=== PATIENT | male | born 1990 | race Caucasian/White ===

== ENCOUNTER 2016-06-17 20:14 | Emergency (ER) | payer OTHER ==
[2016-06-17 21:12] LABS: AMPHETAMINES LEVEL URINE NEGATIVE (NEGATIVE); BENZODIAZEPINES URINE NEGATIVE (NEGATIVE); COCAINE METABOLITE URINE NEGATIVE (NEGATIVE); CONTROL LINE INT CTR LINE PRESENT; METHADONE URINE NEGATIVE (NEGATIVE); OPIATES URINE NEGATIVE (NEGATIVE); TRICYCLIC ANTIDEPRESS URINE NEGATIVE (NEGATIVE)
[2016-06-17 21:31] LABS: ALBUMIN 4.7 GM/DL (3.2-5.2); ALBUMIN/GLOBULIN RATIO 1.47 (1.00-1.93); ALKALINE PHOSPHATASE 106 U/L (45-117); ALT/SGPT 41 U/L (12-78); ANION GAP 10 MEQ/L (8-16); AST/SGOT 23 U/L (15-37); BILIRUBIN,DIRECT 0.3 MG/DL (0.0-0.2); BILIRUBIN,TOTAL 2.8 MG/DL (0.2-1.0); BLOOD UREA NITROGEN 13 MG/DL (7-18); CALCIUM LEVEL 9.1 MG/DL (8.5-10.1); CARBON DIOXIDE LEVEL 26 MEQ/L (21-32); CHLORIDE LEVEL 106 MEQ/L (98-107); CREATININE FOR GFR 0.93 MG/DL (0.70-1.30); GLOMERULAR FILTRATION RATE > 60.0 (>60); GLUCOSE, FASTING 92 MG/DL (70-105); POTASSIUM SERUM 3.8 MEQ/L (3.5-5.1); SODIUM LEVEL 142 MEQ/L (136-145); TOTAL PROTEIN 7.9 GM/DL (6.4-8.2)
[2016-06-17 22:12] LABS: MEAN CORPUSCULAR VOLUME 86.7 fl (80.0-96.0); WHITE BLOOD COUNT 9.1 K/mm3 (4.0-10.0)
[2016-06-17 22:13] LABS: MEAN CORPUSCULAR HEMOGLOBIN 31.3 pg (27.0-33.0); MEAN CORPUSCULAR HGB CONC 36.2 g/dl (32.0-36.5); RED CELL DISTRIBUTION WIDTH 12.6 % (11.5-14.5)
--- NOTE | 2016-06-18 08:39 | EDDOCDS ---
Nurse's Notes [facility] Name: Og Lester Age: 25 yrs Sex: Male : 1990 Arrival Date: 06/17/2016 Time: 20:14 Bed OBSERVATION Private MD: Other - Complete Info On Cds Diagnosis: Major depressive disorder, single episode, unspecified;Suicidal ideations Presentation: 06/17 20:25 Presenting complaint: Patient states: Pt states he has been having marital issues that lf1 have lead to thoughts of hurting himself. When asked if he has a specific plan pt. states "there are a few". Pt. states he was going to use a 10 blade scalpel to his radial artery after numbing with lidocaine, hanging with rope, or using helium or carbon monoxide but decided against that because his car has a converter. Pt states his called someone on post and convinced him to get help. Pt reports that someone from his chain of command brought him in but they did not stay with him. Ssgt. Andrew brought him in. Mental Health Triage Level: Level 2: The patient displays active suicidal ideations. Adult Sepsis Screening:. Mental Health Triage Level: Level 2: The patient displays active suicidal ideations. Suicide/Homicide risk assessment- The patient admits to and/or has been reported to be having suicidal ideations. The patient reports that he/she has a prior history of suicide attempt and/or organized plan. The patient reports that he/she has experienced a significant life altering event in the last 30 days. Status: The patient is an active duty business and services instructor. Transition of care: patient was not received from another setting of care. Red Flag criteria, patient assessed and taken directly to a bed. 20:25 Acuity: ARIN Level 3 lf1 20:25 Method Of Arrival: Walkin/Carried/Asstd lf1 06/18 05:06 Adult Sepsis Screening: The patient does not have new or worsening altered mentation. ko2 Patient's respiratory rate is less than 22. Systolic blood pressure is greater than 100. Patient has a qSOFA score of 0- Negative Sepsis Screen. Triage Assessment: 06/17 20:32 General: Appears in no apparent distress, Behavior is flat. Pain: Denies pain. HIV lf1 screening NA for this visit. Neurological: Level of Consciousness is awake, alert. EENT: No deficits noted. Cardiovascular: Chest pain is denied. Respiratory: Respiratory effort is even, unlabored. GI: Denies nausea, vomiting. Derm: No deficits noted. Injury Description: No known injury. Historical: - Allergies: No known drug Allergies; - Home Meds: 1. none - PMHx: none; - PSHx: Appendectomy; Tonsillectomy; - Social history: Smoking status: Patient states was never smoker of tobacco. No barriers to communication noted, The patient speaks fluent Greek, Speaks appropriately for age, Preferred Language: Greek. - Family history: Not pertinent. - : The pt / caregiver states he / she is not on anticoagulants. Home medication list is obtained from the patient. - Exposure Risk Screening:: None identified. Screenin:46 Fall risk: No risks identified. Assistance ADL's: requires no assistance with mf4 activities of daily living. Nutritional screening: No deficits noted. 06/18 05:06 Screening information is obtained from the patient. Abuse/DV Screen: The patient / ko2 caregiver reports he/she is: not in a situation that causes fear, pain or injury. Advance Directives: Currently, there is no health care proxy. There is no active DNR order. There is no living will. There is no Power of Wet Roaster. home support is adequate. Assessment: 06/17 21:46 General: Appears in no apparent distress, comfortable, Behavior is appropriate for age, mf4 cooperative, pt resting on stretcher eyes closed, resp easy . Respiratory: No deficits noted. Airway is patent Respiratory effort is even, unlabored. 23:28 General: Appears in no apparent distress, comfortable, to be sleeping. Behavior is mf4 appropriate for age, cooperative. Respiratory: Airway is patent Respiratory effort is even, unlabored. 06/18 00:30 General: Appears in no apparent distress, comfortable, to be sleeping. Behavior is mf4 appropriate for age, cooperative. General: pt resting on stretcher no s/s of distress security observing . Respiratory: No deficits noted. Airway is patent Respiratory effort is even, unlabored, Respiratory pattern is regular. 01:30 General: Appears in no apparent distress, comfortable, to be sleeping. mf4 02:55 General: Appears in no apparent distress, comfortable, to be sleeping. Respiratory: No mf4 deficits noted. Airway is patent Respiratory effort is even, unlabored. 03:28 General: Appears in no apparent distress, comfortable, to be sleeping. Respiratory: No mf4 deficits noted. Airway Respiratory effort is even, unlabored. 04:35 General: Appears in no apparent distress, comfortable, to be sleeping. Respiratory: mf4 Airway is patent Respiratory effort is even, unlabored. 05:32 General: Appears in no apparent distress, comfortable, Behavior is appropriate for age, mf4 cooperative. Respiratory: No deficits noted. Airway is patent Respiratory effort is even, unlabored. 07:48 General: Appears in no apparent distress, comfortable, Behavior is appropriate for age, hs1 Pt pleasant this morning. No needs noted. Patient tolerated breakfast well and states that he does not want any more. . Respiratory: No deficits noted. 08:36 General: Appears in no apparent distress, comfortable, Behavior is appropriate for age, hs1 cooperative. Pain: Denies pain. Neurological: No deficits noted. Cardiovascular: No deficits noted. Respiratory: No deficits noted. GI: No deficits noted. Mental Health Eval: 06/17 21:08 Status: The patient is an active duty business and services instructor. PT was [employer] from [id number]. 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 [facility] Behavioral Health: The patient is not an established patient of [facility] Behavioral Health. Referral Information: Evaluation referral is generated by the patient himself / herself. The patient was referred for evaluation because PT +SI. 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 PT states that around the time he re enlisted he and his because he was trying to figure out why he was so depressed and wanted to rule out that it wasn't his marriage. PT admits to multiple detailed plans in regards to how he would kill himself and says he has been researching for years. PT is a MEDIC and he has a scalpel and a pain killer to numb himself and then he was going to cut an artery to bleed to . He was telling his good by and hinting that he was going to kill himself and she began calling PT's command who intervened and brought PT to the hospital. PT was crying with minimal eye contact and flat affect. He cannot CFS. PT became very emotional when he spoke of his 6 year old son who did not recognizing him as a toddler after he returned from deployment but prior to him leaving they were very close. . Delusions are denied. Patient's mood is depressed, Hallucinations are denied. Mental Health history: depression, self -mutilation, Mental Health Admissions: None. Current Outpatient Mental Health Services: None. Current living environment is The patient currently lives alone. Patient presents to Emergency Department with the following symptoms within the past 2 weeks: erratic appetite depressed mood, feelings of helplessness/hopelessness, marital problem, poor concentration, sleep disturbance - erratic suicidal ideation with plan for cutting. Substance abuse: Pt denies. Mental status exam: Patients appearance is appropriate, Patient's behavior is cooperative, Speech is normal. Affect is flat. Mood is depressed. Hallucinations are denied. Appetite is erratic Memory is good. Energy level is normal. Content of thought is depressive. cannot CFS Thought process is intact. Cognitive level is oriented to person, place, time and situation Patient's insight is good. Judgement is fair. Rapport with interviewer is good. Suicidal Ideation present with a plan to kill self by cutting. Homicidal ideation is denied. Disposition: Medically cleared for disposition by Christiano Nieto DO Psychiatric Consult is performed by phone with Dr Zurdo Martinez MD. [facility] Admission Criteria: The patient is experiencing suicidal ideation. The patient requires continuous observation and/or control to protect self, others or property. The patient's care requires a multi-modal treatment plan under close supervision and coordination due to the complexity and severity of the patient's symptoms. Legal Status: Patient's legal status will be [facility] admission: 937. DSM-V Differential Diagnosis: Major Depressive Disorder recurrent episode (F33.0). Insurance Pre-Certification: Not Required, . Narrative: PT is aware that the [facility] does not have a bed available and that his chart [facility]. 21:39 Narrative: PT's commander is SSG Narvaez [phone]. hortensia 23:14 Narrative: Pt's [facility] contacts, 1SG Damien Rodriguez ([phone]) and Sgt Og saxena ([phone]). [facility] report to be completed with Dr. Obrien ([phone]). Vital Signs: 20:16 BP 151 / 85; Pulse 84; Resp 18 S; Temp 98.7(O); Pulse Ox 96% on R/A; Weight 90.72 kg gr2 (R); Height 5 ft. 11 in. (180.34 cm) (R); Pain 2/10; 06/18 06:09 BP 149 / 66; Pulse 72; Resp 16; Temp 98.4(O); Pulse Ox 96% on R/A; Pain 0/10; slm 08:36 BP 151 / 75; Pulse 91; Resp 18; Temp 97.5(T); Pulse Ox 96% ; Pain 0/10; hs1 02 20:16 Body Mass Index 27.89 (90.72 kg, 180.34 cm) gr2 Vitals: 06/17 20:16 Log In Time: June 17, 2016 at 20:16. RN notified that patient meets Red Flag gr2 criteria. ED Course: 20:15 Patient visited by Zarina Aiken. gr2 20:15 Patient moved to Waiting gr2 20:16 Other - Complete Info On Cds is Private Physician. gr2 20:20 Patient visited by Zarina Aiken. gr2 20:25 Patient moved to [facility] lf1 20:31 Triage Initiated lf1 20:33 Patient visited by Marguerite Motley RN. lf1 20:33 Christiano Nieto DO is Attending Physician. cs11 20:33 Patient visited by Christiano Nieto DO. cs11 20:37 Patient visited by Judie Mazariegos PCA. tmm1 20:44 Patient has correct armband on for positive identification. Placed in gown. Placed in tmm1 psych safe attire. Bed in low position. Side rails up X 1. Security observing. Property removed, inventory done, secured in belongings bag- placed in locked locker. locker #2. Door closed. Noise minimized. Visitors limited. Psych Safety Check: Location: Psych Room. Visual Assessment: Cooperative. 21:00 Patient visited by Judie Mazariegos PCA. tmm1 21:00 Patient moved to OBSERVATION cs11 21:13 Patient visited by Judie Mazariegos PCA. tmm1 21:15 Psych Safety Check: Location: Psych Room. Visual Assessment: Cooperative. tmm1 21:15 [facility] Payment Agreement was scanned into [employer] and attached to record. ks16 21:38 Psych Safety Check: Location: Psych Room. Visual Assessment: Sleeping. tmm1 21:46 The patient / caregiver is instructed regarding the plan of care and ED course. mf4 21:46 No IV's were initiated during this patient's visit. No procedures done that require mf4 assistance. 21:56 Psych Safety Check: Location: Psych Room. Visual Assessment: Sleeping. tmm1 22:25 Psych Safety Check: Location: Psych Room. Visual Assessment: Sleeping. tmm1 22:41 Psych Safety Check: Location: Psych Room. Visual Assessment: Sleeping. tmm1 23:04 Psych Safety Check: Location: Psych Room. Visual Assessment: Sleeping. tmm1 23:19 Psych Safety Check: Location: Psych Room. Visual Assessment: Sleeping. tmm1 23:37 Psych Safety Check: Location: Psych Room. Visual Assessment: Sleeping. tmm1 02/06 00:00 Psych Safety Check: Location: Psych Room. Visual Assessment: Sleeping. tmm1 00:15 Psych Safety Check: Location: Psych Room. Visual Assessment: Sleeping. tmm1 00:30 Psych Safety Check: Location: Psych Room. Visual Assessment: Sleeping. tmm1 00:45 Psych Safety Check: Location: Psych Room. Visual Assessment: Sleeping. tmm1 01:00 Psych Safety Check: Location: Psych Room. Visual Assessment: Sleeping. tmm1 01:15 Psych Safety Check: Location: Psych Room. Visual Assessment: Sleeping. tmm1 01:30 Psych Safety Check: Location: Psych Room. Visual Assessment: Sleeping. tmm1 01:49 Psych Safety Check: Location: Psych Room. Visual Assessment: Sleeping. tmm1 01:59 Psych Safety Check: Location: Psych Room. Visual Assessment: Sleeping. tmm1 02:48 Psych Safety Check: Location: Psych Room. Visual Assessment: Sleeping. tmm1 02:53 Patient visited by Jackelyn Will, Physical Therapy Resident. jlm 03:06 Patient visited by Jackelyn Will, Physical Therapy Resident. jlm 03:28 Patient visited by Jackelyn Will, Physical Therapy Resident. jlm 03:47 Patient visited by Jackelyn Will, Physical Therapy Resident. jlm 04:28 Patient visited by Jackelyn Will Physical Therapy Resident. jlm 05:00 Patient visited by Jackelyn Will Physical Therapy Resident. jlm 05:12 Patient visited by Jackelyn Will Unit Clerk. jlm 05:36 Patient visited by Jackelyn Will Physical Therapy Resident. jlm 05:53 Patient visited by Jackelyn Will Physical Therapy Resident. jlm 06:10 Patient visited by Jackelyn Will Unit Clerk. jlm 06:24 [facility] Legal paperwork was scanned into [employer] and attached to record. hm1 06:26 Patient visited by Jackelyn Will Unit Clerk. jlm 06:44 Patient visited by Jackelyn Will Unit Clerk. jlm 06:54 Patient visited by Jackelyn Will Unit Clerk. jlm 06:54 Psych Safety Check: Location: Psych Room. Visual Assessment: Sleeping. jlm 07:10 Patient visited by Lex Mitchell Security Aide. pjf 07:20 Patient visited by Lex Mitchell Security Aide. pjf 07:29 Patient visited by Lex Mitchell Security Aide. pjf 07:43 Patient visited by Lex Mitchell Security Aide. pjf 07:51 Patient visited by Jared Bhat RN. ml6 08:01 Patient visited by Lex Mitchell Security Aide. pjf 08:21 Patient visited by Lex Mitchell Security Aide. pjf 08:35 Patient visited by Lex Mitchell Security Aide. pjf Attachments: 06/18 06:24 [facility] Legal paperwork hm1 Order Results: Lab Order: Acetaminophen Level; SPEC'M 06/17/16 20:50 Test: ACETAMINOPHEN LEVEL; Value: < 2.0; Range: 10.0-30.0; Abnormal: Below low normal; Units: UG/ML; Status: F Lab Order: Basic Metabolic Profile; SPEC'M 06/17/16 20:50 Test: GLUCOSE, FASTING; Value: 92; Range: 70-105; Units: MG/DL; Status: F Test: BLOOD UREA NITROGEN; Value: 13; Range: 7-18; Units: MG/DL; Status: F Test: CREATININE FOR GFR; Value: 0.93; Range: 0.70-1.30; Units: MG/DL; Status: F Test: GLOMERULAR FILTRATION RATE; Value: > 60.0; Range: >60; Status: F Test: SODIUM LEVEL; Value: 142; Range: 136-145; Units: MEQ/L; Status: F Test: POTASSIUM SERUM; Value: 3.8; Range: 3.5-5.1; Units: MEQ/L; Status: F Test: CHLORIDE LEVEL; Value: 106; Range: 98-107; Units: MEQ/L; Status: F Test: CARBON DIOXIDE LEVEL; Value: 26; Range: 21-32; Units: MEQ/L; Status: F Test: ANION GAP; Value: 10; Range: 8-16; Units: MEQ/L; Status: F Test: CALCIUM LEVEL; Value: 9.1; Range: 8.5-10.1; Units: MG/DL; Status: F Test Note: ; Units are mL/min/1.73 m2 Chronic Kidney Disease Staging per NKF: Stage I & II GFR >=60 Normal to Mildly Decreased Stage III GFR 30-59 Moderately Decreased Stage IV GFR 15-29 Severely Decreased Stage V GFR <15 Very Little GFR Left ESRD GFR <15 on DRYING MACHINE BACK TENDER Lab Order: Complete Blood Count; [facility]' 06/17/16 20:50 Test: WHITE BLOOD COUNT; Value: 9.1; Range: 4.0-10.0; Units: K/mm3; Status: F Test: RED BLOOD COUNT; Value: 4.99; Range: 4.30-6.10; Units: M/mm3; Status: F Test: HEMOGLOBIN; Value: 15.7; Range: 14.0-18.0; Units: g/dl; Status: F Test: HEMATOCRIT; Value: 43.3; Range: 42.0-52.0; Units: %; Status: F Test: MEAN CORPUSCULAR VOLUME; Value: 86.7; Range: 80.0-96.0; Units: fl; Status: F Test: MEAN CORPUSCULAR HEMOGLOBIN; Value: 31.3; Range: 27.0-33.0; Units: pg; Status: F Test: MEAN CORPUSCULAR HGB CONC; Value: 36.2; Range: 32.0-36.5; Units: g/dl; Status: F Test: RED CELL DISTRIBUTION WIDTH; Value: 12.6; Range: 11.5-14.5; Units: %; Status: F Test: PLATELET COUNT, AUTOMATED; Value: 211; Range: 150-450; Units: k/mm3; Status: F Lab Order: Drug Eval Toxicology ED Only; SPEC'M 06/17/16 20:50 Test: AMPHETAMINES LEVEL URINE; Value: NEGATIVE; Range: NEGATIVE; Status: F Test: BARBITURATES URINE; Value: NEGATIVE; Range: NEGATIVE; Status: F Test: BENZODIAZEPINES URINE; Value: NEGATIVE; Range: NEGATIVE; Status: F Test: CANNABINOIDS URINE; Value: NEGATIVE; Range: NEGATIVE; Status: F Test: COCAINE METABOLITE URINE; Value: NEGATIVE; Range: NEGATIVE; Status: F Test: METHADONE URINE; Value: NEGATIVE; Range: NEGATIVE; Status: F Test: OPIATES URINE; Value: NEGATIVE; Range: NEGATIVE; Status: F Test: TRICYCLIC ANTIDEPRESS URINE; Value: NEGATIVE; Range: NEGATIVE; Status: F Test Note: ; ALL PRESUMPTIVE POSITIVE FINDINGS ARE UNCONFIRMED NORMAL VALUES THRESHOLD IN NG/ML AMPHETAMINES 1000 METHAMPHETAMINES 1000 BARBITURATES 300 BENZODIAZEPINES 300 CANNABINOIDS (THC) 50 COCAINE METABOLITE 300 METHADONE 300 OPIATES 300 PHENCYCLIDINE 25 TRICYCLIC ANTIDEPRESSANTS 1000 RESULTS ARE FOR MEDICAL PURPOSES ONLY. ALL URINE SPECIMENS WILL BE SAVED FOR 3 DAYS. IF CONFIRMATION OF A PRESUMPTIVE POSTIVE SCREEN RESULT IS DESIRED, CALL CHEMISTRY ([phone]) AND REQUEST URINE TO BE SENT TO REFERENCE LAB. FOR A LIST OF CLOSELY RELATED COMPOUNDS PLEASE CALL THE LAB. Lab Order: Ethyl Alcohol (ethanol); SPEC'M 06/17/16 20:50 Test: ETHYL ALCOHOL (ETHANOL); Value: < 0.003; Range: 0.000-0.010; Units: %; Status: F Lab Order: Liver Profile; SPEC'M 06/17/16 20:50 Test: AST/SGOT; Value: 23; Range: 15-37; Units: U/L; Status: F Test: ALT/SGPT; Value: 41; Range: 12-78; Units: U/L; Status: F Test: ALKALINE PHOSPHATASE; Value: 106; Range: 45-117; Units: U/L; Status: F Test: BILIRUBIN,TOTAL; Value: 2.8; Range: 0.2-1.0; Abnormal: Above high normal; Units: MG/DL; Status: F Test: BILIRUBIN,DIRECT; Value: 0.3; Range: 0.0-0.2; Abnormal: Above high normal; Units: MG/DL; Status: F Test: TOTAL PROTEIN; Value: 7.9; Range: 6.4-8.2; Units: GM/DL; Status: F Test: ALBUMIN; Value: 4.7; Range: 3.2-5.2; Units: GM/DL; Status: F Test: ALBUMIN/GLOBULIN RATIO; Value: 1.47; Range: 1.00-1.93; Status: F Lab Order: Salicylate Level; SPEC'M 06/17/16 20:50 Test: SALICYLATE LEVEL; Value: < 1.7; Range: 5.0-30.0; Abnormal: Below low normal; Units: MG/DL; Status: F Lab Order: Thyroid Stimulating Hormone; SPEC'M 06/17/16 20:50 Test: THYROID STIMULATING HORMONE; Value: 2.550; Range: 0.358-3.740; Units: uIU/ML; Status: F Outcome: 06/17 22:53 ER care complete, transfer ordered by Provider. cs11 06/18 05:05 Admission hand-off: Report called to [facility] ER to Valorie Raymond RN. ko2 08:35 Discharge Assessment: Patient awake, alert and oriented x 3. No cognitive and/or hs1 functional deficits noted. Patient verbalized understanding of disposition instructions. patient administered narcotics - no. The following High Risk Discharge criteria are identified: None. Transferred to [facility]. by EMS ground [facility] ambulance report to accompanying personnel Trey Leonard EMT, Leland Braun EMT. Condition: stable. No special radiology studies were completed. 08:37 Patient left the ED. hs1 Signatures: Lex Mitchell Security Aide Securpjf Ford, LisaRN RN lf1 Jared Bhat RN RN ml6 Kaylen Ruano, PSA PSA jfb Samantha Orona, PSA PSA hm1 Marcelle Sanchez RN RN hs1 Dru Figueredo,EYEWEAR MANUFACTURING SUPERVISOR EYEWEAR MANUFACTURING SUPERVISOR 4 Gerson, Christiano, DO DO cs11 McLear, Judie, FUNERAL ASSISTANT FUNERAL ASSISTANT tmm1 Zarina Aiken gr2 Shani Bean,GERRY DUBONN Jackelyn Mathews, Physical Therapy Resident Unit Marina Steve,JERRY RN ashu2 Shelia Cristina, Reg Reg ks16 MTDD
--- NOTE | 2016-06-18 08:39 | EDDOCDS ---
Physician Documentation [facility] Name: Og Lester Age: 25 yrs Sex: Male : 1990 Arrival Date: 06/17/2016 Time: 20:14 Bed OBSERVATION Private MD: Other - Complete Info On Cds Disposition: 06/17/16 22:53 Transfer ordered to [facility]. Diagnosis are Major depressive disorder, single episode, unspecified, Suicidal ideations. - Reason for transfer: Higher level of care. - Accepting physician is Dr Phelan. - Condition is Stable. - Problem is an ongoing problem. - Symptoms are unchanged. Historical: - Allergies: No known drug Allergies; - Home Meds: 1. none - PMHx: none; - PSHx: Appendectomy; Tonsillectomy; - Social history: Smoking status: Patient states was never smoker of tobacco. No barriers to communication noted, The patient speaks fluent Burmese, Speaks appropriately for age, Preferred Language: Burmese. - Family history: Not pertinent. - : The pt / caregiver states he / she is not on anticoagulants. Home medication list is obtained from the patient. - Exposure Risk Screening:: None identified. Vital Signs: 06/17 20:16 BP 151 / 85; Pulse 84; Resp 18 S; Temp 98.7(O); Pulse Ox 96% on R/A; Weight 90.72 kg / gr2 200 lbs (R); Height 5 ft. 11 in. (180.34 cm) (R); Pain 2/10; 06/18 06:09 BP 149 / 66; Pulse 72; Resp 16; Temp 98.4(O); Pulse Ox 96% on R/A; Pain 0/10; slm 08:36 BP 151 / 75; Pulse 91; Resp 18; Temp 97.5(T); Pulse Ox 96% ; Pain 0/10; hs1 06/17 20:16 Body Mass Index 27.89 (90.72 kg, 180.34 cm) gr2 MDM: 06/17 20:34 Consult PFS/PSA/Painting Department Supervisor ordered. cs11 20:34 Consult PFS/PSA/Painting Department Supervisor: Patient's case requires discussion with on-call cs11 Psychiatrist ordered. 20:34 PSA/PFS to call Nursing Three Dimensional Map Modeler, to enter patient data on [place] Safe Act if patient cs11 involuntarily admitted or transferred for SI or HI ordered. 20:34 Confirm accurate psychiatric medication list and times of last dosage ordered. cs11 20:34 Detain Pt Until Medically/PFS Cleared ordered. cs11 20:35 Acetaminophen Level Ordered. EDMS 20:35 Basic Metabolic Profile Ordered. EDMS 20:35 Complete Blood Count Ordered. EDMS 20:35 Drug Eval Toxicology ED Only Ordered. EDMS 20:35 Ethyl Alcohol (ethanol) Ordered. EDMS 20:35 Liver Profile Ordered. EDMS 20:35 Salicylate Level Ordered. EDMS 20:35 Thyroid Stimulating Hormone Ordered. EDMS 21:07 Consult PFS/PSA/Painting Department Supervisor complete. jfb 21:08 Consult PFS/PSA/Painting Department Supervisor: Patient's case requires discussion with on-call b Psychiatrist complete. 21:08 PSA/PFS to call Nursing Three Dimensional Map Modeler, to enter patient data on [facility] Safe Act if patient jfb involuntarily admitted or transferred for SI or HI complete. 21:15 Financial registration complete. ks16 21:15 REPLACED BY [facility] Payment Agreement was scanned into [employer] and attached to record. ks16 22:49 Acetaminophen Level Reviewed. cs11 22:49 Liver Profile Reviewed. cs11 22:49 Salicylate Level Reviewed. cs11 22:49 Basic Metabolic Profile Reviewed. cs11 22:49 Complete Blood Count Reviewed. cs11 22:49 Drug Eval Toxicology ED Only Reviewed. cs11 22:49 Ethyl Alcohol (ethanol) Reviewed. cs11 22:49 Thyroid Stimulating Hormone Reviewed. cs11 06 05:03 REGULAR DIET PLASTIC BACA+DIET ordered. EDMS 06:24 [facility] Legal paperwork was scanned into [employer] and attached to record. hm1 Signatures: Dispatcher [employer] EDMS Marguerite Motley,RN RN lf1 Kaylen Ruano, PSA PSA jfb Samantha Orona, PSA PSA hm1 Marcelle Sanchez RN RN hs1 Christiano Nieto, DO cs11 Marina Bergman RN RN ko2 Shelia Cristina, Reg Reg ks16 The chart was reviewed and I authenticate all verbal orders and agree with the evaluation and treatment provided.Attachments: 06/17 21:15 REPLACED BY [facility] Payment Agreement ks16 MTDD
--- NOTE | 2016-06-20 09:38 | EDDOCDS ---
Physician Documentation [facility] Name: Og Lester Age: 25 yrs Sex: Male : 1990 Arrival Date: 06/17/2016 Time: 20:14 Bed OBSERVATION Private MD: Other - Complete Info On Cds Disposition: 06/17/16 22:53 Transfer ordered to [facility]. Diagnosis are Major depressive disorder, single episode, unspecified, Suicidal ideations. - Reason for transfer: Higher level of care. - Accepting physician is Dr Phelan. - Condition is Stable. - Problem is an ongoing problem. - Symptoms are unchanged. Historical: - Allergies: No known drug Allergies; - Home Meds: 1. none - PMHx: none; - PSHx: Appendectomy; Tonsillectomy; - Social history: Smoking status: Patient states was never smoker of tobacco. No barriers to communication noted, The patient speaks fluent [place]ibian, Speaks appropriately for age, Preferred Language: [place]ibian. - Family history: Not pertinent. - : The pt / caregiver states he / she is not on anticoagulants. Home medication list is obtained from the patient. - Exposure Risk Screening:: None identified. Vital Signs: 06/17 20:16 BP 151 / 85; Pulse 84; Resp 18 S; Temp 98.7(O); Pulse Ox 96% on R/A; Weight 90.72 kg / gr2 200 lbs (R); Height 5 ft. 11 in. (180.34 cm) (R); Pain 2/10; 06/18 06:09 BP 149 / 66; Pulse 72; Resp 16; Temp 98.4(O); Pulse Ox 96% on R/A; Pain 0/10; slm 08:36 BP 151 / 75; Pulse 91; Resp 18; Temp 97.5(T); Pulse Ox 96% ; Pain 0/10; hs1 06/17 20:16 Body Mass Index 27.89 (90.72 kg, 180.34 cm) gr2 MDM: 06/17 20:34 Consult PFS/PSA/Cigar Packer And Sorter ordered. cs11 20:34 Consult PFS/PSA/Cigar Packer And Sorter: Patient's case requires discussion with on-call cs11 Psychiatrist ordered. 20:34 PSA/PFS to call [facility], to enter patient data on [place] Safe Act if patient cs11 involuntarily admitted or transferred for SI or HI ordered. 20:34 Confirm accurate psychiatric medication list and times of last dosage ordered. cs11 20:34 Detain Pt Until Medically/PFS Cleared ordered. cs11 20:35 Acetaminophen Level Ordered. EDMS 20:35 Basic Metabolic Profile Ordered. EDMS 20:35 Complete Blood Count Ordered. EDMS 20:35 Drug Eval Toxicology ED Only Ordered. EDMS 20:35 Ethyl Alcohol (ethanol) Ordered. EDMS 20:35 Liver Profile Ordered. EDMS 20:35 Salicylate Level Ordered. EDMS 20:35 Thyroid Stimulating Hormone Ordered. EDMS 21:07 Consult PFS/PSA/Cigar Packer And Sorter complete. jfb 21:08 Consult PFS/PSA/Cigar Packer And Sorter: Patient's case requires discussion with on-call jfb Psychiatrist complete. 21:08 PSA/PFS to call [facility], to enter patient data on [facility] Safe Act if patient jfb involuntarily admitted or transferred for SI or HI complete. 21:15 Financial registration complete. [email or web address] 21:15 [facility] Agreement was scanned into [employer] and attached to record. [email or web address] 22:49 Acetaminophen Level Reviewed. cs11 22:49 Liver Profile Reviewed. cs11 22:49 Salicylate Level Reviewed. cs11 22:49 Basic Metabolic Profile Reviewed. cs11 22:49 Complete Blood Count Reviewed. cs11 22:49 Drug Eval Toxicology ED Only Reviewed. cs11 22:49 Ethyl Alcohol (ethanol) Reviewed. cs11 22:49 Thyroid Stimulating Hormone Reviewed. cs11 06/18 05:03 REGULAR DIET PLASTIC BACA+DIET ordered. EDMS 06:24 [facility] Legal paperwork was scanned into [employer] and attached to record. 1 14:52 T-Sheet-- Draft Copy was scanned into [employer] and attached to record. gb Signatures: Dispatcher [employer] EDMS Maria Isabel Rowe, Reg Reg gb Marguerite Motley,RN RN lf1 Kaylen Ruano, PSA PSA jfb Samantha Orona, PSA PSA hm1 Marcelle Sanchez, RN RN hs1 Christiano Nieto, DO cs11 Marina Bergman RN RN ko2 Shelia Cristina, Reg Reg ks16 The chart was reviewed and I authenticate all verbal orders and agree with the evaluation and treatment provided.Attachments: 06/17 21:15 [facility] Payment Agreement [email or web address] 14:52 T-Sheet-- Draft Copy gb Chart Complete MTDD
--- NOTE | 2016-06-20 09:38 | EDDOCDS ---
Physician Documentation [facility] Name: Og Lester Age: 25 yrs Sex: Male : 1990 Arrival Date: 06/17/2016 Time: 20:14 Bed OBSERVATION Private MD: Other - Complete Info On Cds Disposition: 06/17/16 22:53 Transfer ordered to [facility]. Diagnosis are Major depressive disorder, single episode, unspecified, Suicidal ideations. - Reason for transfer: Higher level of care. - Accepting physician is Dr Phelan. - Condition is Stable. - Problem is an ongoing problem. - Symptoms are unchanged. Historical: - Allergies: No known drug Allergies; - Home Meds: 1. none - PMHx: none; - PSHx: Appendectomy; Tonsillectomy; - Social history: Smoking status: Patient states was never smoker of tobacco. No barriers to communication noted, The patient speaks fluent Polish, Speaks appropriately for age, Preferred Language: Polish. - Family history: Not pertinent. - : The pt / caregiver states he / she is not on anticoagulants. Home medication list is obtained from the patient. - Exposure Risk Screening:: None identified. Vital Signs: 06/17 20:16 BP 151 / 85; Pulse 84; Resp 18 S; Temp 98.7(O); Pulse Ox 96% on R/A; Weight 90.72 kg / gr2 200 lbs (R); Height 5 ft. 11 in. (180.34 cm) (R); Pain 2/10; 06/18 06:09 BP 149 / 66; Pulse 72; Resp 16; Temp 98.4(O); Pulse Ox 96% on R/A; Pain 0/10; slm 08:36 BP 151 / 75; Pulse 91; Resp 18; Temp 97.5(T); Pulse Ox 96% ; Pain 0/10; hs1 06/17 20:16 Body Mass Index 27.89 (90.72 kg, 180.34 cm) gr2 MDM: 06/17 20:34 Consult PFS/PSA/Computer Information Systems Professor ordered. cs11 20:34 Consult PFS/PSA/Computer Information Systems Professor: Patient's case requires discussion with on-call cs11 Psychiatrist ordered. 20:34 PSA/PFS to call Nursing [facility], to enter patient data on [place] Safe Act if patient cs11 involuntarily admitted or transferred for SI or HI ordered. 20:34 Confirm accurate psychiatric medication list and times of last dosage ordered. cs11 20:34 Detain Pt Until Medically/PFS Cleared ordered. cs11 20:35 Acetaminophen Level Ordered. EDMS 20:35 Basic Metabolic Profile Ordered. EDMS 20:35 Complete Blood Count Ordered. EDMS 20:35 Drug Eval Toxicology ED Only Ordered. EDMS 20:35 Ethyl Alcohol (ethanol) Ordered. EDMS 20:35 Liver Profile Ordered. EDMS 20:35 Salicylate Level Ordered. EDMS 20:35 Thyroid Stimulating Hormone Ordered. EDMS 21:07 Consult PFS/PSA/Computer Information Systems Professor complete. jfb 21:08 Consult PFS/PSA/Computer Information Systems Professor: Patient's case requires discussion with on-call jfb Psychiatrist complete. 21:08 PSA/PFS to call Nursing So[employer] And Plant Scientist, to enter patient data on [facility] Safe Act if patient jfb involuntarily admitted or transferred for SI or HI complete. 21:15 Financial registration complete. [email or web address] 21:15 [facility] [place] Payment Agreement was scanned into [email or web address] and attached to record. [email or web address] 22:49 Acetaminophen Level Reviewed. cs11 22:49 Liver Profile Reviewed. cs11 22:49 Salicylate Level Reviewed. cs11 22:49 Basic Metabolic Profile Reviewed. cs11 22:49 Complete Blood Count Reviewed. cs11 22:49 Drug Eval Toxicology ED Only Reviewed. cs11 22:49 Ethyl Alcohol (ethanol) Reviewed. cs11 22:49 Thyroid Stimulating Hormone Reviewed. cs11 06/18 05:03 REGULAR DIET PLASTIC BACA+DIET ordered. EDMS 06:24 [facility] Legal paperwork was scanned into [email or web address] and attached to record. 1 14:52 T-Sheet-- Draft Copy was scanned into [email or web address] and attached to record. gb Signatures: Dispatcher [employer] EDMS Maria Isabel Rowe, Reg Reg gb Marguerite Motley,RN RN lf1 Kaylen Ruano, PSA PSA jfb Samantha Orona, PSA PSA hm1 Marcelle Sanchez, RN RN hs1 Christiano Neito, DO cs11 Marina Bergman RN RN ko2 Shelia Cristina, Reg Reg ks16 The chart was reviewed and I authenticate all verbal orders and agree with the evaluation and treatment provided.Attachments: 06/17 21:15 [facility] [place] Payment Agreement [email or web address] 14:52 T-Sheet-- Draft Copy gb Chart Complete MTDD
--- NOTE | 2016-06-20 09:39 | EDDOCDS ---
Nurse's Notes [facility] Name: Og Lester Age: 25 yrs Sex: Male : 1990 Arrival Date: 06/17/2016 Time: 20:14 Bed OBSERVATION Private MD: Other - Complete Info On Cds Diagnosis: Major depressive disorder, single episode, unspecified;Suicidal ideations Presentation: 06/17 20:25 Presenting complaint: Patient states: Pt states he has been having marital issues that lf1 have lead to thoughts of hurting himself. When asked if he has a specific plan pt. states "there are a few". Pt. states he was going to use a 10 blade scalpel to his radial artery after numbing with lidocaine, hanging with rope, or using helium or carbon monoxide but decided against that because his car has a converter. Pt states his called someone on post and convinced him to get help. Pt reports that someone from his chain of command brought him in but they did not stay with him. Ssgt. Andrew brought him in. Mental Health Triage Level: Level 2: The patient displays active suicidal ideations. Adult Sepsis Screening:. Mental Health Triage Level: Level 2: The patient displays active suicidal ideations. Suicide/Homicide risk assessment- The patient admits to and/or has been reported to be having suicidal ideations. The patient reports that he/she has a prior history of suicide attempt and/or organized plan. The patient reports that he/she has experienced a significant life altering event in the last 30 days. Status: The patient is an active duty facility service manager. Transition of care: patient was not received from another setting of care. Red Flag criteria, patient assessed and taken directly to a bed. 20:25 Acuity: ARIN Level 3 lf1 20:25 Method Of Arrival: Walkin/Carried/Asstd lf1 06/18 05:06 Adult Sepsis Screening: The patient does not have new or worsening altered mentation. ko2 Patient's respiratory rate is less than 22. Systolic blood pressure is greater than 100. Patient has a qSOFA score of 0- Negative Sepsis Screen. Triage Assessment: 06/17 20:32 General: Appears in no apparent distress, Behavior is flat. Pain: Denies pain. HIV lf1 screening NA for this visit. Neurological: Level of Consciousness is awake, alert. EENT: No deficits noted. Cardiovascular: Chest pain is denied. Respiratory: Respiratory effort is even, unlabored. GI: Denies nausea, vomiting. Derm: No deficits noted. Injury Description: No known injury. Historical: - Allergies: No known drug Allergies; - Home Meds: 1. none - PMHx: none; - PSHx: Appendectomy; Tonsillectomy; - Social history: Smoking status: Patient states was never smoker of tobacco. No barriers to communication noted, The patient speaks fluent French, Speaks appropriately for age, Preferred Language: French. - Family history: Not pertinent. - : The pt / caregiver states he / she is not on anticoagulants. Home medication list is obtained from the patient. - Exposure Risk Screening:: None identified. Screenin:46 Fall risk: No risks identified. Assistance ADL's: requires no assistance with mf4 activities of daily living. Nutritional screening: No deficits noted. 06/18 05:06 Screening information is obtained from the patient. Abuse/DV Screen: The patient / ko2 caregiver reports he/she is: not in a situation that causes fear, pain or injury. Advance Directives: Currently, there is no health care proxy. There is no active DNR order. There is no living will. There is no Power of Cloud Automation Tester. home support is adequate. Assessment: 06/17 21:46 General: Appears in no apparent distress, comfortable, Behavior is appropriate for age, mf4 cooperative, pt resting on stretcher eyes closed, resp easy . Respiratory: No deficits noted. Airway is patent Respiratory effort is even, unlabored. 23:28 General: Appears in no apparent distress, comfortable, to be sleeping. Behavior is mf4 appropriate for age, cooperative. Respiratory: Airway is patent Respiratory effort is even, unlabored. 06/18 00:30 General: Appears in no apparent distress, comfortable, to be sleeping. Behavior is mf4 appropriate for age, cooperative. General: pt resting on stretcher no s/s of distress security observing . Respiratory: No deficits noted. Airway is patent Respiratory effort is even, unlabored, Respiratory pattern is regular. 01:30 General: Appears in no apparent distress, comfortable, to be sleeping. mf4 02:55 General: Appears in no apparent distress, comfortable, to be sleeping. Respiratory: No mf4 deficits noted. Airway is patent Respiratory effort is even, unlabored. 03:28 General: Appears in no apparent distress, comfortable, to be sleeping. Respiratory: No mf4 deficits noted. Airway Respiratory effort is even, unlabored. 04:35 General: Appears in no apparent distress, comfortable, to be sleeping. Respiratory: mf4 Airway is patent Respiratory effort is even, unlabored. 05:32 General: Appears in no apparent distress, comfortable, Behavior is appropriate for age, mf4 cooperative. Respiratory: No deficits noted. Airway is patent Respiratory effort is even, unlabored. 07:48 General: Appears in no apparent distress, comfortable, Behavior is appropriate for age, hs1 Pt pleasant this morning. No needs noted. Patient tolerated breakfast well and states that he does not want any more. . Respiratory: No deficits noted. 08:36 General: Appears in no apparent distress, comfortable, Behavior is appropriate for age, hs1 cooperative. Pain: Denies pain. Neurological: No deficits noted. Cardiovascular: No deficits noted. Respiratory: No deficits noted. GI: No deficits noted. Mental Health Eval: 06/17 21:08 Status: The patient is an active duty facility service manager. PT was [employer] from [id number]. 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 [facility] Behavioral Health: The patient is not an established patient of [facility] Behavioral Health. Referral Information: Evaluation referral is generated by the patient himself / herself. The patient was referred for evaluation because PT +SI. 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 PT states that around the time he re enlisted he and his because he was trying to figure out why he was so depressed and wanted to rule out that it wasn't his marriage. PT admits to multiple detailed plans in regards to how he would kill himself and says he has been researching for years. PT is a MEDIC and he has a scalpel and a pain killer to numb himself and then he was going to cut an artery to bleed to . He was telling his good by and hinting that he was going to kill himself and she began calling PT's command who intervened and brought PT to the hospital. PT was crying with minimal eye contact and flat affect. He cannot CFS. PT became very emotional when he spoke of his 6 year old son who did not recognizing him as a toddler after he returned from deployment but prior to him leaving they were very close. . Delusions are denied. Patient's mood is depressed, Hallucinations are denied. Mental Health history: depression, self -mutilation, Mental Health Admissions: None. Current Outpatient Mental Health Services: None. Current living environment is The patient currently lives alone. Patient presents to Emergency Department with the following symptoms within the past 2 weeks: erratic appetite depressed mood, feelings of helplessness/hopelessness, marital problem, poor concentration, sleep disturbance - erratic suicidal ideation with plan for cutting. Substance abuse: Pt denies. Mental status exam: Patients appearance is appropriate, Patient's behavior is cooperative, Speech is normal. Affect is flat. Mood is depressed. Hallucinations are denied. Appetite is erratic Memory is good. Energy level is normal. Content of thought is depressive. cannot CFS Thought process is intact. Cognitive level is oriented to person, place, time and situation Patient's insight is good. Judgement is fair. Rapport with interviewer is good. Suicidal Ideation present with a plan to kill self by cutting. Homicidal ideation is denied. Disposition: Medically cleared for disposition by Christiano Nieto DO Psychiatric Consult is performed by phone with Dr Zurdo Martinez MD. [facility] Admission Criteria: The patient is experiencing suicidal ideation. The patient requires continuous observation and/or control to protect self, others or property. The patient's care requires a multi-modal treatment plan under close supervision and coordination due to the complexity and severity of the patient's symptoms. Legal Status: Patient's legal status will be [facility] admission: 937. DSM-V Differential Diagnosis: Major Depressive Disorder recurrent episode (F33.0). Insurance Pre-Certification: Not Required, . Narrative: PT is aware that the [facility] does not have a bed available and that his chart [facility]. 21:39 Narrative: PT's commander is SSG Narvaez [phone]. hortensia 23:14 Narrative: Pt's [facility] contacts, 1SG Damien Rodriguez ([phone]) and Sgt Og saxena ([phone]). [facility] report to be completed with Dr. Obrien ([phone]). Vital Signs: 20:16 BP 151 / 85; Pulse 84; Resp 18 S; Temp 98.7(O); Pulse Ox 96% on R/A; Weight 90.72 kg gr2 (R); Height 5 ft. 11 in. (180.34 cm) (R); Pain 2/10; 06/18 06:09 BP 149 / 66; Pulse 72; Resp 16; Temp 98.4(O); Pulse Ox 96% on R/A; Pain 0/10; slm 08:36 BP 151 / 75; Pulse 91; Resp 18; Temp 97.5(T); Pulse Ox 96% ; Pain 0/10; hs1 02 20:16 Body Mass Index 27.89 (90.72 kg, 180.34 cm) gr2 Vitals: 06/17 20:16 Log In Time: June 17, 2016 at 20:16. RN notified that patient meets Red Flag gr2 criteria. ED Course: 20:15 Patient visited by Zarina Aiken. gr2 20:15 Patient moved to Waiting gr2 20:16 Other - Complete Info On Cds is Private Physician. gr2 20:20 Patient visited by Zarina Aiken. gr2 20:25 Patient moved to [facility] lf1 20:31 Triage Initiated lf1 20:33 Patient visited by Marguerite Motley RN. lf1 20:33 Christiano Nieto DO is Attending Physician. cs11 20:33 Patient visited by Christiano Nieto DO. cs11 20:37 Patient visited by Judie Mazariegos PCA. tmm1 20:44 Patient has correct armband on for positive identification. Placed in gown. Placed in tmm1 psych safe attire. Bed in low position. Side rails up X 1. Security observing. Property removed, inventory done, secured in belongings bag- placed in locked locker. locker #2. Door closed. Noise minimized. Visitors limited. Psych Safety Check: Location: Psych Room. Visual Assessment: Cooperative. 21:00 Patient visited by Judie Mazariegos PCA. tmm1 21:00 Patient moved to OBSERVATION cs11 21:13 Patient visited by Judie Mazariegos PCA. tmm1 21:15 Psych Safety Check: Location: Psych Room. Visual Assessment: Cooperative. tmm1 21:15 [facility] Payment Agreement was scanned into [employer] and attached to record. ks16 21:38 Psych Safety Check: Location: Psych Room. Visual Assessment: Sleeping. tmm1 21:46 The patient / caregiver is instructed regarding the plan of care and ED course. mf4 21:46 No IV's were initiated during this patient's visit. No procedures done that require mf4 assistance. 21:56 Psych Safety Check: Location: Psych Room. Visual Assessment: Sleeping. tmm1 22:25 Psych Safety Check: Location: Psych Room. Visual Assessment: Sleeping. tmm1 22:41 Psych Safety Check: Location: Psych Room. Visual Assessment: Sleeping. tmm1 23:04 Psych Safety Check: Location: Psych Room. Visual Assessment: Sleeping. tmm1 23:19 Psych Safety Check: Location: Psych Room. Visual Assessment: Sleeping. tmm1 23:37 Psych Safety Check: Location: Psych Room. Visual Assessment: Sleeping. tmm1 02/06 00:00 Psych Safety Check: Location: Psych Room. Visual Assessment: Sleeping. tmm1 00:15 Psych Safety Check: Location: Psych Room. Visual Assessment: Sleeping. tmm1 00:30 Psych Safety Check: Location: Psych Room. Visual Assessment: Sleeping. tmm1 00:45 Psych Safety Check: Location: Psych Room. Visual Assessment: Sleeping. tmm1 01:00 Psych Safety Check: Location: Psych Room. Visual Assessment: Sleeping. tmm1 01:15 Psych Safety Check: Location: Psych Room. Visual Assessment: Sleeping. tmm1 01:30 Psych Safety Check: Location: Psych Room. Visual Assessment: Sleeping. tmm1 01:49 Psych Safety Check: Location: Psych Room. Visual Assessment: Sleeping. tmm1 01:59 Psych Safety Check: Location: Psych Room. Visual Assessment: Sleeping. tmm1 02:48 Psych Safety Check: Location: Psych Room. Visual Assessment: Sleeping. tmm1 02:53 Patient visited by Jackelyn Will, Slack Cooper. jlm 03:06 Patient visited by Jackelyn Will, Slack Cooper. jlm 03:28 Patient visited by Jackelyn Will, Slack Cooper. jlm 03:47 Patient visited by Jackelyn Will, Slack Cooper. jlm 04:28 Patient visited by Jackelyn Will Slack Cooper. jlm 05:00 Patient visited by Jackelyn Will Slack Cooper. jlm 05:12 Patient visited by Jackelyn Will Unit Clerk. jlm 05:36 Patient visited by Jackelyn Will Slack Cooper. jlm 05:53 Patient visited by Jackelyn Will Slack Cooper. jlm 06:10 Patient visited by Jackelyn Will Unit Clerk. jlm 06:24 [facility] Legal paperwork was scanned into [employer] and attached to record. hm1 06:26 Patient visited by Jackelyn Will Unit Clerk. jlm 06:44 Patient visited by Jackelyn Will Unit Clerk. jlm 06:54 Patient visited by Jackelyn Will Unit Clerk. jlm 06:54 Psych Safety Check: Location: Psych Room. Visual Assessment: Sleeping. jlm 07:10 Patient visited by Lex Mitchell Security Aide. pjf 07:20 Patient visited by Lex Mitchell Security Aide. pjf 07:29 Patient visited by Lex Mitchell Security Aide. pjf 07:43 Patient visited by Lex Mitchell Security Aide. pjf 07:51 Patient visited by Jared Bhat RN. ml6 08:01 Patient visited by Lex Mitchell Security Aide. pjf 08:21 Patient visited by Lex Mitchell Security Aide. pjf 08:35 Patient visited by Lex Mitchell Security Aide. pjf 14:52 T-Sheet-- Draft Copy was scanned into [employer] and attached to record. gb Attachments: 06/18 06:24 E Legal paperwork hm1 Order Results: Lab Order: Acetaminophen Level; SPEC'M 06/17/16 20:50 Test: ACETAMINOPHEN LEVEL; Value: < 2.0; Range: 10.0-30.0; Abnormal: Below low normal; Units: UG/ML; Status: F Lab Order: Basic Metabolic Profile; SPEC'M 06/17/16 20:50 Test: GLUCOSE, FASTING; Value: 92; Range: 70-105; Units: MG/DL; Status: F Test: BLOOD UREA NITROGEN; Value: 13; Range: 7-18; Units: MG/DL; Status: F Test: CREATININE FOR GFR; Value: 0.93; Range: 0.70-1.30; Units: MG/DL; Status: F Test: GLOMERULAR FILTRATION RATE; Value: > 60.0; Range: >60; Status: F Test: SODIUM LEVEL; Value: 142; Range: 136-145; Units: MEQ/L; Status: F Test: POTASSIUM SERUM; Value: 3.8; Range: 3.5-5.1; Units: MEQ/L; Status: F Test: CHLORIDE LEVEL; Value: 106; Range: 98-107; Units: MEQ/L; Status: F Test: CARBON DIOXIDE LEVEL; Value: 26; Range: 21-32; Units: MEQ/L; Status: F Test: ANION GAP; Value: 10; Range: 8-16; Units: MEQ/L; Status: F Test: CALCIUM LEVEL; Value: 9.1; Range: 8.5-10.1; Units: MG/DL; Status: F Test Note: ; Units are mL/min/1.73 m2 Chronic Kidney Disease Staging per NKF: Stage I & II GFR >=60 Normal to Mildly Decreased Stage III GFR 30-59 Moderately Decreased Stage IV GFR 15-29 Severely Decreased Stage V GFR <15 Very Little GFR Left ESRD GFR <15 on PERIOPERATIVE TECH Lab Order: [facility] Blood Count; [facility] 06/17/16 20:50 Test: WHITE BLOOD COUNT; Value: 9.1; Range: 4.0-10.0; Units: K/mm3; Status: F Test: RED BLOOD COUNT; Value: 4.99; Range: 4.30-6.10; Units: M/mm3; Status: F Test: HEMOGLOBIN; Value: 15.7; Range: 14.0-18.0; Units: g/dl; Status: F Test: HEMATOCRIT; Value: 43.3; Range: 42.0-52.0; Units: %; Status: F Test: MEAN CORPUSCULAR VOLUME; Value: 86.7; Range: 80.0-96.0; Units: fl; Status: F Test: MEAN CORPUSCULAR HEMOGLOBIN; Value: 31.3; Range: 27.0-33.0; Units: pg; Status: F Test: MEAN CORPUSCULAR HGB CONC; Value: 36.2; Range: 32.0-36.5; Units: g/dl; Status: F Test: RED CELL DISTRIBUTION WIDTH; Value: 12.6; Range: 11.5-14.5; Units: %; Status: F Test: PLATELET COUNT, AUTOMATED; Value: 211; Range: 150-450; Units: k/mm3; Status: F Lab Order: Drug Eval Toxicology ED Only; SPEC'M 06/17/16 20:50 Test: AMPHETAMINES LEVEL URINE; Value: NEGATIVE; Range: NEGATIVE; Status: F Test: BARBITURATES URINE; Value: NEGATIVE; Range: NEGATIVE; Status: F Test: BENZODIAZEPINES URINE; Value: NEGATIVE; Range: NEGATIVE; Status: F Test: CANNABINOIDS URINE; Value: NEGATIVE; Range: NEGATIVE; Status: F Test: COCAINE METABOLITE URINE; Value: NEGATIVE; Range: NEGATIVE; Status: F Test: METHADONE URINE; Value: NEGATIVE; Range: NEGATIVE; Status: F Test: OPIATES URINE; Value: NEGATIVE; Range: NEGATIVE; Status: F Test: TRICYCLIC ANTIDEPRESS URINE; Value: NEGATIVE; Range: NEGATIVE; Status: F Test Note: ; ALL PRESUMPTIVE POSITIVE FINDINGS ARE UNCONFIRMED NORMAL VALUES THRESHOLD IN NG/ML AMPHETAMINES 1000 METHAMPHETAMINES 1000 BARBITURATES 300 BENZODIAZEPINES 300 CANNABINOIDS (THC) 50 COCAINE METABOLITE 300 METHADONE 300 OPIATES 300 PHENCYCLIDINE 25 TRICYCLIC ANTIDEPRESSANTS 1000 RESULTS ARE FOR MEDICAL PURPOSES ONLY. ALL URINE SPECIMENS WILL BE SAVED FOR 3 DAYS. IF CONFIRMATION OF A PRESUMPTIVE POSTIVE SCREEN RESULT IS DESIRED, CALL CHEMISTRY ([phone]) AND REQUEST URINE TO BE SENT TO REFERENCE LAB. FOR A LIST OF CLOSELY RELATED COMPOUNDS PLEASE CALL THE LAB. Lab Order: Ethyl Alcohol (ethanol); SPEC'M 06/17/16 20:50 Test: ETHYL ALCOHOL (ETHANOL); Value: < 0.003; Range: 0.000-0.010; Units: %; Status: F Lab Order: Liver Profile; SPEC'M 06/17/16 20:50 Test: AST/SGOT; Value: 23; Range: 15-37; Units: U/L; Status: F Test: ALT/SGPT; Value: 41; Range: 12-78; Units: U/L; Status: F Test: ALKALINE PHOSPHATASE; Value: 106; Range: 45-117; Units: U/L; Status: F Test: BILIRUBIN,TOTAL; Value: 2.8; Range: 0.2-1.0; Abnormal: Above high normal; Units: MG/DL; Status: F Test: BILIRUBIN,DIRECT; Value: 0.3; Range: 0.0-0.2; Abnormal: Above high normal; Units: MG/DL; Status: F Test: TOTAL PROTEIN; Value: 7.9; Range: 6.4-8.2; Units: GM/DL; Status: F Test: ALBUMIN; Value: 4.7; Range: 3.2-5.2; Units: GM/DL; Status: F Test: ALBUMIN/GLOBULIN RATIO; Value: 1.47; Range: 1.00-1.93; Status: F Lab Order: Salicylate Level; SPEC'M 06/17/16 20:50 Test: SALICYLATE LEVEL; Value: < 1.7; Range: 5.0-30.0; Abnormal: Below low normal; Units: MG/DL; Status: F Lab Order: Thyroid Stimulating Hormone; SPEC'M 06/17/16 20:50 Test: THYROID STIMULATING HORMONE; Value: 2.550; Range: 0.358-3.740; Units: uIU/ML; Status: F Outcome: 06/17 22:53 ER care complete, transfer ordered by Provider. cs11 06/18 05:05 Admission hand-off: Report called to [facility] ER to Valorie Raymond RN. ko2 08:35 Discharge Assessment: Patient awake, alert and oriented x 3. No cognitive and/or hs1 functional deficits noted. Patient verbalized understanding of disposition instructions. patient administered narcotics - no. The following High Risk Discharge criteria are identified: None. Transferred to [facility]. by EMS ground [facility] ambulance report to accompanying personnel Trey Leonard EMT, Leland Braun EMT. Condition: stable. No special radiology studies were completed. 08:37 Patient left the ED. hs1 Signatures: Maria Isabel Rowe, Reg Reg gb Lex Mitchell, Security Aide Marguerite Asif RN RN lf1 Jraed Bhat RN RN ml6 Kaylen Ruano, PSA PSA jfb Samantha Orona, PSA PSA hm1 Marcelle Sanchez, RN RN hs1 Dru Figueredo,PRESS OPERATOR PRESS OPERATOR mf4 Christiano Nieto, DO cs11 McLear, Judie, ORDNANCE ENGINEERING TECHNICIAN ORDNANCE ENGINEERING TECHNICIAN tmm1 Zarina Aiken gr2 Shani Bean,PRESS OPERATOR PRESS OPERATOR slm Jackelyn Will, Slack Cooper Unit Marina Steve RN RN ashu2 Shelia Cristina, Reg Reg ks16 Chart Complete MTDD
== END 2016-06-18 08:37 ==
LOC: M ED 20:14
DX: F32.9 Major depressive disorder, single episode, unspecified (principal); R45.851 Suicidal ideations
CPT/HCPCS: 36415; 80048; 80076; 80306; 84443; 85027; 99285; G0480

== ENCOUNTER 2018-09-04 10:25 | Emergency (ER) | payer OTHER ==
[~2018-09-04] VITALS: Ht 180.3 cm; Wt 111.7 kg
--- NOTE | 2018-09-04 10:52 | REP ---
CT Head without contrast HISTORY: Headache COMPARISON: None There is no intraparenchymal hemorrhage, acute infarct, mass or midline shift. The ventricular system is normal in appearance. There is no extra cerebral collection. There is no fracture. The visualized sinuses are clear. IMPRESSION: There is no intracranial lesion. Electronically Signed by Napoleon Vasques MD 09/04/2018 10:44 A
[2018-09-04] MEDS ORDERED: NS 1,000 ML IV ONE (11:15)
[2018-09-04] MEDS ORDERED: diphenhydrAMINE INJ 50MG/ML VIAL (J1200) IV ONE (11:15)
[2018-09-04] MEDS ORDERED: KETOROLAC 30 MG/ML VIAL (J1885) IV ONE (11:15)
[2018-09-04] MEDS ORDERED: METOCLOPRAMIDE INJ 10MG/2ML VIAL (J2765) IV ONE (11:15)
[2018-09-04 12:00] VITALS: BP 132/68
== END 2018-09-04 12:04 | disposition home or self-care (01) ==
LOC: M ED 10:25
DX: R51 Headache (principal); H53.149 Visual discomfort, unspecified; R11.0 Nausea
CPT/HCPCS: 70450; 96374; 96375; 99284; J1200; J1885; J2765

== ENCOUNTER 2019-03-06 09:35 | Day surgery (SDC) | payer OTHER ==
[~2019-03-06] VITALS: Ht 180.3 cm; Wt 112.5 kg
[~2019-03-06 09:35] MED LIST: LACRILUBE (AKWA TEARS) OPHTH OINT 3.5 GM As Ordered ONE; LIDOCAINE 2% INJ 100 MG/5 ML SDV (FOR ANES.) As Ordered ONE; LR 1,000 ML IV ONE; MIDAZOLAM INJ 2 MG/2 ML VIAL (J2250) As Ordered ONE; ONDANSETRON 4MG/2ML VIAL (J2405) As Ordered ONE; PROPOFOL 200 MG/20 ML VIAL As Ordered ONE; ROCURONIUM BROMIDE 50 MG/5 ML VIAL As Ordered ONE; ceFAZolin SOD 2 GM in IV 1 EA IV ONE; dexameTHASONE 4 MG/ML 1ML VIAL (J1100) As Ordered ONE; fentaNYL 100 MCG/2 ML INJECTION (J3010) As Ordered ONE
[2019-03-06] MEDS ORDERED: ROPIvacaine 0.5% 30 ML INJECTION (J2795 PER 1MG) ONE (09:36)
[2019-03-06] MEDS ORDERED: LIDOCAINE 2% MDV 20 ML VIAL ONE (09:36)
[2019-03-06] MEDS ORDERED: MIDAZOLAM INJ 2 MG/2 ML VIAL (J2250) As Ordered ONE (10:37)
[2019-03-06] MEDS ORDERED: fentaNYL 100 MCG/2 ML INJECTION (J3010) As Ordered ONE ×2 (10:37→14:38)
[2019-03-06] MEDS ORDERED: fentaNYL 100 MCG/2 ML INJECTION (J3010) IV ONE (11:45)
[2019-03-06] MEDS ORDERED: MIDAZOLAM INJ 2 MG/2 ML VIAL (J2250) IV ONE (11:45)
[2019-03-06] MEDS ORDERED: ROCURONIUM BROMIDE 50 MG/5 ML VIAL As Ordered ONE (13:18)
[2019-03-06] MEDS ORDERED: ACETAMINOPHEN 1000MG 100ML IV BTL (OFIRMEV) (J0131 PER 10MG) As Ordered ONE (13:19)
[2019-03-06] MEDS ORDERED: SUGAMMADEX SODIUM 500 MG/5 ML VIAL (BRIDION) As Ordered ONE (13:19)
[2019-03-06] MEDS ORDERED: ePHEDrine SULFATE 25 MG/5 ML(5MG/ML) SYRINGE As Ordered ONE (14:17)
[2019-03-06] MEDS ORDERED: DESFLURANE 240 ML INHALANT As Ordered ONE (14:57)
[2019-03-06] MEDS ORDERED: KETAMINE HCL 200 MG/20 ML VIAL As Ordered ONE (14:58)
[2019-03-06] MEDS ORDERED: LR 1,000 ML IV SCH ×2 (15:45)
[2019-03-06] MEDS ORDERED: PERCOCET 5MG/325MG TAB PO PRN (15:45)
[2019-03-06] MEDS ORDERED: HYDROMORPHONE HCL 0.5 MG/ 0.5 ML SYRINGE (J1170 PER 1) IV PRN (15:45)
[2019-03-06] MEDS ORDERED: fentaNYL 100 MCG/2 ML INJECTION (J3010) IV PRN (15:45)
[2019-03-06] MEDS ORDERED: ONDANSETRON 4MG/2ML VIAL (J2405) IV PRN (15:45)
[2019-03-06 17:40] VITALS: BP 130/68
--- NOTE | 2019-03-09 20:50 | RO ---
DATE OF PROCEDURE: 03/06/2019 PREPROCEDURE DIAGNOSES: 1. Right ankle peroneal tendon recurrent subluxation. 2. Right ankle instability. POSTPROCEDURE DIAGNOSES: 1. Right ankle peroneal tendon recurrent subluxation. 2. Right ankle instability. PROCEDURE: 1. Right fibular groove deepening osteotomy. 2. Excision low lying peroneal brevis muscle. 3. Exploration and tubularization of peroneal tendons. 4. Brostrom-Vanessa procedure. SURGEON: Vee Martinez MD CHAIR INSPECTOR AND LEVELER: TYRESE Sams ANESTHESIA: LMA. ESTIMATED BLOOD LOSS: 25 mL. COMPLICATIONS: None. CONDITION: Stable to recovery. INDICATIONS: Og Lester is a 28-year-old male who has had longstanding pain to his right ankle due to peroneal tendon subluxation and ankle instability with recurrent ankle sprains. He has failed conservative measures. Risks and benefits of surgery were discussed with the patient in detail and included but are not limited to infection, damage to nerves and blood vessels, continued pain and stiffness, need for additional procedures. Informed consent was obtained in the office. DESCRIPTION OF PROCEDURE: The patient was met in the preoperative holding area where his right lower extremity was marked as the correct operative side. He went under a preoperative nerve block. He was then taken to the operating room where he underwent general anesthesia. The patient was placed in the lateral decubitus position. A beanbag was used and bony prominences were well padded. An axillary roll was placed. A well-padded tourniquet was placed on the right upper thigh. A chlorhexidine scrub was performed of the right lower extremity. He was then prepped and draped in the normal sterile fashion. At this point, an official time-out was held where the correct patient, operative side, and operative extremity were confirmed. The patient did receive antibiotics within 60 minutes prior to incision. The right lower extremity was exsanguinated and tourniquet was inflated to 275 mmHg. An incision was made just posterior to the fibula over the peroneal tendons. The superior retinaculum was identified. It was intact but did appear to be attenuated. This was incised off the fibula and tagged for later repair. The peroneal tendons were then explored as well. There was significant flattening to the peroneus brevis tendon and a very low lying brevis muscle which extended to the tip of the fibula. There was a convex nature of the fibula as well and significant overcrowding of the posterior space behind the fibula. The periosteum was incised over the posterior aspect of the fibula and a fibular groove deepening osteotomy was performed using a small round bur, which was approximately 4 mm in size. Following this, the periosteum was laid back over the posterior aspect of fibula where possible. I had rasped down any rough edges prior to this. I then excised the low lying brevis muscle. The peroneal brevis was then tubularized using a #3-0 Vicryl suture. Peroneus longus was intact without any significant tear and was of normal color, shape and caliber. One this was performed, the superior peroneal retinaculum was repaired using three drill holes through the posterolateral aspect of the fibula. The tissue was repaired in a [id number] fashion and tied down with #2-0 FiberWire. Following repair of the superior peroneal retinaculum, there was no recurrent subluxation of the peroneal tendons. I ankle was able to freely range through motion without any subluxation and the tendons continued to glide freely. At this point, attention was turned to the lateral ligaments. The patient had been examined under anesthesia prior to incision and was found to have a clinically more significant anterior drawer and talar tilt than his contralateral side. Given his recurrent ankle sprains, decision was made to proceed with a Brostrom-Vanessa procedure. An incision was made just anterior to the distal fibula. Blunt dissection to level of the fibula was performed. The capsule and lateral ligaments were taken off of the anterior fibula and when a large cuff of tissue. Any remaining tissue was debrided off the distal fibula. Two 3 mm double-loaded SutureTaks were placed into the region of the anterior talofibular ligament (ATFL) and the calcaneofibular ligament (CFL). Tissue was then repaired back to the fibula and adequately tightened. Following this, anterior drawer and talar tilt exam were stable. Again, I could completely range the patient's ankle without any significant tightness. The extensor retinaculum was then incorporated into the repair, which was further reinforced with #0 Vicryl and #2-0 FiberWire where necessary. Copious irrigation was performed and soft tissue was closed using #3- 0 Vicryl and #3-0 nylon. The patient was placed into a well-padded cast. He was extubated and transferred to the recovery room in stable condition. TYRESE Sams was present for the entire procedure and was essential for aid in soft tissue retraction, suture anchor placement and soft tissue repair. PLAN: Patient will be non-weightbearing in the right lower extremity for 6 weeks. He will be on aspirin for deep vein thrombosis (DVT) prophylaxis. I will see him back in the office in 2 weeks for suture removal. EVANGELINA
== END 2019-03-06 17:50 | disposition home or self-care (01) ==
LOC: M SDC 09:35
PROVIDERS: ATTEND Orthopaedic Surgery
DX: M25.371 Other instability, right ankle (principal); S93.0 Subluxation and dislocation of ankle joint; M54.2 Cervicalgia; F41.9 Anxiety disorder, unspecified; F32.9 Major depressive disorder, single episode, unspecified; X58.XXXS Exposure to other specified factors, sequela
CPT/HCPCS: 27676; 27698; C1713; J0131; J0690; J1100; J2250; J2405; J2795; J3010

== ENCOUNTER 2019-06-09 07:24 | Emergency (ER) | payer OTHER ==
[~2019-06-09] VITALS: Ht 180.3 cm; Wt 119.0 kg
[2019-06-09] MEDS ORDERED: KETOROLAC 60 MG/2 ML VIAL (J1885) IM ONE (08:00)
--- NOTE | 2019-06-09 08:37 | REP ---
Left shoulder three view : There is no fracture or dislocation. Mineralization and joint spaces are normal. There are no calcifications or foreign bodies. Impression: Negative left shoulder . Electronically Signed by Javier Fitzgerald MD 06/09/2019 08:29 A
--- NOTE | 2019-06-09 08:38 | REP ---
Left elbow for views : There is no fracture or dislocation. Mineralization and joint spaces are normal. There are no calcifications or foreign bodies. Impression: Negative left elbow . Electronically Signed by Javier Fitzgerald MD 06/09/2019 08:29 A
[2019-06-09] MEDS ORDERED: NORC1TAB7 PO (08:42)
[2019-06-09 09:03] VITALS: BP 136/88
== END 2019-06-09 09:09 | disposition home or self-care (01) ==
LOC: M ED 07:24
DX: S50.02XA Contusion of left elbow, initial encounter (principal); S49.92XA Unspecified injury of left shoulder and upper arm, initial encounter; W00.0XXA Fall on same level due to ice and snow, initial encounter; Y92.009 Unspecified place in unspecified non-institutional (private) residence as the place of occurrence of the external cause; Y93.9 Activity, unspecified; Y99.9 Unspecified external cause status
CPT/HCPCS: 73030; 73080; 96372; 99284; J1885